=== PATIENT | female | born 2000 | race African-American/Black ===

== ENCOUNTER 2020-01-29 09:21 | Emergency (ER) | payer BC ==
[~2020-01-29] VITALS: Ht 157.5 cm; Wt 68.0 kg
[2020-01-29 09:36] LABS: URINE BILIRUBIN NEGATIVE (Negative); URINE BLOOD 1+ (Negative); URINE CLARITY CLEAR; URINE COLOR YELLOW; URINE GLUCOSE-RANDOM NEGATIVE (Negative); URINE KETONES NEGATIVE (Negative); URINE LEUKOCYTES-REFLEX 2+ (Negative); URINE NITRITE-REFLEX NEGATIVE (Negative); URINE PROTEIN TRACE (Negative); URINE UROBILINOGEN 0.2 E.U./dl (0.2-1.0)
[2020-01-29 09:45] LABS: CASTS None Seen /LPF (None Seen); CRYSTALS None Seen /LPF (None Seen); MUCUS None Seen strn/LPF (None Seen); SQUAMOUS >10 Many /LPF (0-3); URINE RBC 3-10 Few /HPF (0-2)
[2020-01-29] MEDS ORDERED: BACTRIM DS TAB1 EACH PO (10:20)
[2020-01-29 10:27] VITALS: BP 110/72
== END 2020-01-29 10:28 | disposition home or self-care (01) ==
LOC: M.ERS 09:21
PROVIDERS: Emergency Medicine
DX: N39.0 Urinary tract infection, site not specified (principal)